=== PATIENT | male | born 1940 | race Caucasian/White ===

== ENCOUNTER 2020-06-15 21:30 | Emergency (ER) | payer MEDICARE ==
[2020-06-15] MEDS ORDERED: MEMA10TA19 PO (22:26)
[2020-06-15] MEDS ORDERED: ASPI1CHW3 PO (22:26)
[2020-06-15] MEDS ORDERED: LEVO75TA4 PO (22:26)
[2020-06-15] MEDS ORDERED: LOSA50TA88 PO (22:26)
[2020-06-16 00:11] LABS: BASO % 0.3 % (0.0-1.0); EOS # 0.1 10^3/uL (0.0-0.5); EOS % 0.7 % (0.0-3.0); HEMATOCRIT 54.1 % (42.0-52.0); LYMPH % 18.9 % (24.0-44.0); MEAN CORPUSCULAR HEMOGLOBIN 30.5 pg (27.0-33.0); MEAN CORPUSCULAR HGB CONC 33.3 g/dl (32.0-36.5); MEAN CORPUSCULAR VOLUME 91.5 fl (80.0-96.0); MONO # 0.8 10^3/uL (0.0-0.8); MONO % 7.4 % (2.0-8.0); NEUTROPHILS # 7.5 10^3/uL (1.5-8.5); NEUTROPHILS % 72.3 % (36.0-66.0); PLATELET COUNT, AUTOMATED 142 10^3/uL (150-450); RED BLOOD COUNT 5.91 10^6/uL (4.30-6.10); WHITE BLOOD COUNT 10.4 10^3/uL (4.0-10.0)
[2020-06-16 00:46] LABS: CALCIUM LEVEL 9.7 MG/DL (8.8-10.2); CREATININE FOR GFR 1.88 MG/DL (0.70-1.30); GLOMERULAR FILTRATION RATE 36.9 (>35); POTASSIUM SERUM 4.4 MEQ/L (3.5-5.1)
[2020-06-16] MEDS ORDERED: LOSARTAN 50MG TABLET PO ONE (06:40)
[2020-06-16] MEDS ORDERED: LEVOTHYROXINE 75MCG TABLET (0.075MG) PO ONE (06:40)
[2020-06-16 07:02] VITALS: BP 187/91
[2020-06-16] MEDS ORDERED: LORazepam 1 MG TAB PO ONE (13:30)
[2020-06-16] MEDS ORDERED: LORazepam 2 MG TAB PO STA (13:31)
[2020-06-16] MEDS ORDERED: LORazepam 1 MG TAB PO STA (13:37)
[2020-06-16 14:37] VITALS: BP 128/83
== END 2020-06-16 04:39 | disposition home or self-care (01) ==
LOC: M ED 22:44
DX: G30.9 Alzheimer's disease, unspecified (principal); I10 Essential (primary) hypertension; Z79.82 Long term (current) use of aspirin; Z79.899 Other long term (current) drug therapy